=== PATIENT | female | born 1985 | race Caucasian/White ===

== ENCOUNTER → 2021-03-29 00:01 | Outpatient (CLI) | payer SELFPAY ==
[2021-03-29 18:52] LABS: SARS-CoV-2 RNA PCR Negative
== END ==
PROVIDERS: PCP Physician Assistant; Visit Provider Dentist
DX: Z01.812 Encounter for preprocedural laboratory examination (principal); Z20.822 Contact with and (suspected) exposure to COVID-19
CPT/HCPCS: C9803; U0003; U0005

== ENCOUNTER 2021-04-01 00:34 | Day surgery (SDC) | payer SELFPAY ==
[2021-03-26 08:14] VITALS: BMI 23.3
--- NOTE | 2021-03-31 10:54 | WPDANESEPPF ---
Anes - Initial Pre Proc Eval Procedure: Operation Date: 04/01/21 07:30 Proposed Procedures p Extraction of Twelve Teeth - Kenan Alvarez DMD Date/Time: 03/31/21 10:54 Surgeon: Kenan Alvarez DMD Pre Op Diagnosis: dental caries Patient Data Age: 35 Gender: F Height: 1.45 m Weight: 49 kg Allergies Allergy/AdvReac Type Severity Reaction Status Date / Time No Known Allergies Allergy Verified 04/01/21 06:46 Home Medications Medication Instructions Recorded Confirmed Type No Home Medications 03/26/21 04/01/21 History Patient hx anesthesia problems: none Family hx anesthesia problems: none Results Review: All pre-operative results and documents have been reviewed as part of the pre-operative evaluation. COUNTS INCLUDE 234 BEDS AT THE [facility] Surgical History Surgical History (Updated 03/31/21 @ 10:54 by Murtaza Beatty DO) History of Social History Social History Smoking packs per day: 1 Smoking cigarettes per day: 20.0 Years smoked: 18 Smoking pack-years: 18.00 Smoking status: Current every day smoker Tobacco type: cigarettes Alcohol intake: never Substance use: current Substance use type: marijuana Other substance usage details: SMOKE Last use: 03/08/21 Living arrangements: with family Spiritual care concerns: No Anes - Eval Final PreProcedure Day of Procedure 03/31/21 10:54 Patient weight: normal Heart: regular rate and rhythm Lungs: clear to auscultation and normal air movement Airway: Mallampati scale class II Neurological: alert and oriented Last oral intake: >/= 8 hours ASA classification: II Emergent: no Anesthetic plan: proceed Anesthesia type and monitoring: general ETT and standard monitoring Other findings: nasal Results Review: All pre-operative results and documents have been reviewed as part of the pre-operative evaluation. Informed Consent: The patient's anesthetic plan and its attendant risks and benefits were discussed with the patient/family/POA. Questions were solicited and answers provided to the satisfaction of the patient/family/POA.
[2021-04-01] VITALS (7 sets, daily range): BP systolic 134–169; BP diastolic 78–104; PULSE 76–92; RESP 13–16; TEMP 36.4–36.9; O2SAT 94–100
[2021-04-01] MEDS: LACTATED RINGERS 1,000 ML 30 ML IV CONT (07:08)
--- NOTE | 2021-04-01 07:11 | WPDHPUPDATE1 ---
History and Physical Update Update Date/Time: 04/01/21 07:11 History and Physical has been reviewed, including an updated exam of the patient. There are NO changes in the patient's condition. Risks, benefits, and alternatives have been discussed and questions answered. Patient agrees to proceed with procedure.
--- NOTE | 2021-04-01 07:11 | PM.IMHP ---
H&P: HPI History of Present Illness Date/Time: 04/01/21 07:11 complains of bad teeth Chief Complaint: bad teeth PMFSH Surgical History Surgical History (Updated 03/31/21 @ 10:54 by Murtaza Beatty DO) History of Social History Social History Smoking packs per day: 1 Smoking cigarettes per day: 20.0 Years smoked: 18 Smoking pack-years: 18.00 Smoking status: Current every day smoker Tobacco type: cigarettes Alcohol intake: never Substance use: current Substance use type: marijuana Other substance usage details: SMOKE Last use: 03/08/21 Living arrangements: with family Spiritual care concerns: No Meds Home Medications and Allergies Home Medications Medication Instructions Recorded Confirmed Type No Home Medications 03/26/21 04/01/21 History Allergies Allergy/AdvReac Type Severity Reaction Status Date / Time No Known Allergies Allergy Verified 04/01/21 06:46 Assessment and Plan Assessment and plan (1) Non-restorable tooth: Code(s): K08.89 - Other specified disorders of teeth and supporting structures Status: Acute Assessment and Plan: multiple nonrestorable teeth. SR # 1, 5, 8,9,10,11,15,16,17,18,30,32 8s and 9s
[2021-04-01] MEDS: OXYMETAZOLINE HCL 0.05% NAS 15 ML BTL (*BKC) 1 SPRAY NASAL (07:42)
[2021-04-01] MEDS: LIDOCAINE 2%-EPI (FOR DENTAL BLOCK) 1.7 ML CARTRIDGE INFILTRATE (07:44)
[2021-04-01] MEDS: GELATIN SPONGE SZ 100 1 EACH TOPICAL (07:47)
--- NOTE | 2021-04-01 08:16 | P.OPB_ITS ---
Procedure Note - Brief Procedure Note - Brief Date of procedure: 04/01/21 Pre-op diagnosis: dental caries Surgeon: Kenan Alvarez DMD Preoperative diagnosis nonrestorable and impacted teeth numbers 1 5 8 9 10 11 15 16 17 18 30 3 8s and 9s. Postop diagnosis same. Procedure removal of af orementioned teeth. Anesthetic general anesthetic and 5cc of 2% lidocaine with 1 100,000 epinephrine. Blood loss 10cc. Complications none. Patient was encountered in the operating room in the care of the Anesthesia Service who induced general anesthetic. Oral cavity suctioned free of debris and throat pack was placed. Local anesthetic administered. Fifteen blade was used to make a thermal incision a tooth 1. Tooth 1. Was uncovered bone removed and 2 1. Was removed using elevator and forceps technique without complication. Psychic curetted free of debris and irrigated copious amount sterile saline. Do a circular incision was made in the anterior maxilla with the distal releasing incision the area of 12. Full-thickness flaps elevated the buckle. Teeth #[id number] were removed using alligator forceps technique without complication. Hand piece was used to remove bone around tooth numbers 9s and 8 S and these teeth were removed using elevator forceps technique without complication. All sockets curetted free of debris and irrigated copious amounts of sterile saline. Gelfoam was packed into the wound of 8. and 9s. The tissues were reapproximated using 4-0 chromic gut suture in interrupted fashion. Attention was turned to the ER 15. And 16 were 3rd molar incision was made with extension to the area of 15. Full-thickness flap was elevated the buckle. Bone on the buckle was removed in the teeth removed using elevator and forceps technique without complication. Subcuticular retrieved reinterrogate the wildlife and game protector [place] saline. Gingival tissues reapproximated using 4-0 chromic gut suture in interrupted fashion. Attention was turned to the area number 17 in 18 or 3rd molar incision was made in a full-thickness flap was elevated to the buccal. Bone was removed on the buccal surface of these teeth and the teeth removed using a ring forceps technique without complication socket curetted free of debris and irrigated copious amount sterile saline. Gingival tissues r eapproximated using 4-0 chromic gut suture in interrupted fashion. Attention was turned to the lower right were 3rd molar incision was made with extension to the area of number 30 full-thickness flaps over the buckle. Buccal trough was created on teeth numbers 30 and 32 and these teeth removed using alligator forceps technique without complication. Second curetted free of debris and irrigated copious amount sterile saline. The wound number 32 was packed with bone wax and Gelfoam to provide hemostasis. Gingiva gingival tissues reapproximated using 4-0 chromic gut suture in interrupted fashion. Oral cavity suctioned free of debris and throat pack was removed. Gauze packings place. Care the patient was turned the Anesthesia Service who extubated the patient and transferred to recovery in stable condition.
[2021-04-01] MEDS: oxyCODONE HCL (*CRX) 5 MG TAB IR PO (09:04)
[2021-04-01] MEDS: fentaNYL CITRATE INJ (*CRX) 100 MCG/2 ML VIAL 25 MCG IV PUSH (09:19)
--- NOTE | 2021-04-01 09:45 | SUR.PHASEII ---
Dr. Beatty aware of BP and said it's ok to send patient home.
--- NOTE | 2021-04-01 11:04 | SUR.PHASEII ---
0922: RN gave 25mcg of Fentanyl and forgot to chart it.
== END 2021-04-01 10:04 | disposition home or self-care (01) ==
PROVIDERS: PCP Physician Assistant; Visit Provider Dentist
PROC: (CPT 41899; principal; 2021-04-01 07:30)
DX: K02.9 Dental caries, unspecified (principal); K01.1 Impacted teeth; K08.89 Other specified disorders of teeth and supporting structures; F17.210 Nicotine dependence, cigarettes, uncomplicated; F12.90 Cannabis use, unspecified, uncomplicated
CPT/HCPCS: D7240 ×14; A9270; J0330; J1100; J2250; J2405; J2704; J3010; J7120

== ENCOUNTER 2024-09-16 14:40 | Outpatient (CLI) | payer OTHER, SELFPAY ==
--- NOTE | 2024-09-16 | ECG_ITS ---
Test Date: 2024-09-16 16:19:02 Measurements Intervals [place] Rate: 80 P: 32 MS: 151 QRS: 56 QRSD: 93 T: 42 QT: 370 QTc: 429 Interpretive Statements SINUS RHYTHM POSSIBLE LEFT ATRIAL ENLARGEMENT MINIMAL Q WAVES- INFERIOR LEADS BORDERLINE ECG No previous ECG available for comparison Electronically Signed On 09-16-2024 16:27:41 CDT by Gonzalez Truong D.O.
--- NOTE | ~2024-09-16 | US_ITS ---
EXAMINATION: US venous doppler [facility] DATE: 09/16/2024 15:58 INDICATION: Edema TECHNIQUE: Grayscale ultrasound images without and with compression and Doppler ultrasound images of the bilateral lower extremity veins were obtained. COMPARISON: None. FINDINGS: The visualized portions of right common femoral vein, profunda (deep) femoral vein, femoral vein, pop liteal vein, peroneal veins, posterior tibial veins, and greater saphenous vein outflow are patent. The visualized portions of left common femoral vein, profunda femoral vein, femoral vein, popliteal v ein, peroneal veins, posterior tibial veins, and greater saphenous vein outflow are patent. IMPRESSION: 1. No deep venous thrombosis. Reviewed, dictated and finalized at location A.
--- OUTSIDE RECORDS SUMMARY | 2024-09-16 16:52 | XMS_ITS | Clinical Summary ---
Author Organization [facility] Address [address] [place] [address] Care Team Providers Care Managed Care Director Name Role Phone Renny Del Castillo MD Primary Care Provider + Source Comments [facility],non-owned Affiliates and Associated Physician Practices is amultiple site organization consisting of ambulatory clinics and hospital sitesin [place], [place], [place] and [place]. This disclosure is being madepursuant to the Care Everywhere program and may not contain all information available regarding this patient. Last updated 18.[facility] Allergies No known active allergies Medications * Be aware that medications may not be up to date on this document. Alwaysverify current medications with the patient. Medication Sig Dispensed Refills Start Date End Date Status Vit-Fe Fumarate-FA ( VITAMIN) 28-0.8 MG tablet Take 1 Tab by mouth. Active acetaminophen (TYLENOL) 500 MG tablet Take 2 Tabs by mouth every 6 hours as needed for Pain. Maximum allowable Acetaminophen amount = 4 Grams / 24 hours. 04/26/2010 Active valacyclovir (VALTREX) 1 GM tablet Take 1,000 mg by mouth daily. 04/13/2010 Active oxycodone-acetamin ophen (PERCOCET) 5-325 MG tablet Take 1-2 Tabs by mouth every 4 hours as needed for Pain. 20 Tab 0 11/06/2010 Active labetalol (NORMODYNE; TRANDATE) 300 MG tablet Take 3 Tabs by mouth 2 times daily. 180 1 11/06/2010 Active diltiazem coated beads 24hr (CARDIZEM CD) 360 MG capsule Take 1 Cap by mouth every 24 hours. 90 1 11/06/2010 Active hydrochlorothiazid e 12.5 MG TABS Take 12.5 mg by mouth daily. 15 1 11/06/2010 Active ferrous sulfate 325 (65 FE) MG tablet Take 1 Tab by mouth daily. 60 Tab 1 11/06/2010 Active docusate sodium (COLACE) 100 MG capsule Take 1-2 Caps by mouth nightly as needed for Constipation. 60 1 11/06/2010 Active ibuprofen (MOTRIN) 600 MG tablet Take 1 Tab by mouth every 6 hours as needed for Pain. 60 Tab 0 11/06/2010 Active norethindrone (NOR-QD) 0.35 MG tablet Take 1 Tab by mouth daily. 3 Packet 0 11/06/2010 Active norethindrone (NOR-QD) 0.35 MG tablet Take 1 Tab by mouth once daily. Take at the same time everyday. 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 Pt denies h/o outbreaks, but states her boyfriend has genital herpes. Supervision of other high-risk 010 Overview (04/19/2015): Consult from [facility]; [place]; Dr. Simon O+/I/-/- HIV neg VZV IgG positive HSV 2 IgG positive H/H: 13.4/41.5 Hgb A1C (04/08/2010): 5.1 Last pap 04/08/10: negative GCT 100 GBS positive ECHO done 07/15/10 at showed Normal anatomy within limits of ultrasound 08/23: Mild right sided renal pelvis dilation measuring 6.1mm)- resolved 09/06 HTN (hypertension) 04/19/2010 Overview (06/03/2010): Congenital per consult records. Plan is to stop methyl DOPA and to begin Diltiazem (slow release). Baseline 24hr urine <33mg, but likely inadequate (vol 650 ml), repeat 58mg Tobacco abuse 04/19/2010 Overview (04/19/2010): Interested in cessation Maternal Congenital renal dysgenesis Overview (04/26/2010): Followed at [facility] until age 19. No follow-up for 5 years (now23) due to lack of insurance. She was seen by specialists regarding her kidney, hypertension, short stature 4 feet 8 inches, and heart. Will request records. Heart murmur Overview (04/26/2010): echo done at age 19, mitral regurgitation per pt. Will repeat maternal echocardiogram to confirm diagnosis and request [facility] records. Scoliosis Immunizations Name Administration Dates Next Due INFLUENZA VACCINE 05/10/2010 TDAP (7yrs+) 11/06/2010 Family History Medical History Relation Name Comments Heart Failure Maternal Grandfather Hypertension Maternal Grandfather Cancer Maternal Grandmother breast cancer Hypertension Maternal Grandmother Hypertension Mother Cancer Other brain cancer CAD (Coronary Artery Disease) Paternal Grandfather Heart Failure Paternal Grandfather Stroke Paternal Grandmother Arthritis Neg Hx Bleeding Disorders Neg Hx Clotting Disorder Neg Hx Diabetes Neg Hx Genetic/Metabolic Disease Neg Hx Heart Disease Neg Hx Kidney Disease Neg Hx Multiple Births Neg Hx Labor Neg Hx Sickle Cell Anemia Neg Hx Toxemia Neg Hx Tuberculosis Neg Hx Twins Neg Hx Relation Name Status Comments Maternal Grandfather Maternal Grandmother Mother Other Paternal Grandfather Paternal Grandmother Social History Tobacco Use Types Packs/Day Years Used Date Smoking Tobacco: Every Day Cigarettes 0.8 11 Smokeless Tobacco: Never Tobacco Cessation:Ready to Q uit: No Alcohol Use Standard Drinks/Week Comments No 0 (1 standard drink = 0.6 oz pur e alcohol) Sex and Gender Information Value Date Recorded Sex Assigned at Not on file Gender Identity Not on file Sexual Orientation Not on file Last Filed Vital Signs Vital Sign Reading Time Taken Comments Blood Pressure 160/90 12/29/2010 1:00 PM CDT Pulse 98 12/29/2010 1:00 PM CDT Temperature 36.9 C (98.4 F) 11/06/2010 8:10 AM CDT Respiratory Rate 18 12/29/2010 1:00 PM CDT Oxygen Saturation 99% 11/06/2010 8:10 AM CDT Inhaled Oxygen Concentration - - Weight 61.2 kg (135 lb) 12/29/2010 1:00 PM CDT Height 144.8 cm (4' 9 ) 10/31/2010 5:08 PM CDT Body Mass Index 29.21 10/31/2010 5:08 PM CDT Plan of Treatment Health Maintenance Due Date Last Done Comments HEPATITIS C SCREENING 08/09/2004 HEPATITIS B VACCINE (1 of 3 - 19+ 3-dose series) 2005 PNEUMOCOCCAL VACCINE (1 of 2 - PCV) 2005 DTAP/TDAP/TD VACCINES (2 - T d or Tdap) 11/06/2020 11/06/2010 COVID-19 VACCINE (1 - 2023-2 5 season) 2024 DEPRESSION SCREENING 06/12/2024 INFLUENZA VACCINE (Season Ended) 2025 05/10/20 ZOSTER VACCINE (1 of 2) 2036 HIV SCREENING Completed 06/03/2010 HIB VACCINE Aged Out No longer eligi ble based on patient's age to complete this topic HPV VACCINE Aged Out No longer eligi ble based on patient's age to complete this topic MENINGOCOCCAL (Group B) VACC INE SHARED DECISION-MAKING Aged Out No longer eligibl e based on patient's age to complete this topic MENINGOCOCCAL GROUPS A/C/Y/W VACCINE Aged Out No longer eligible b ased on patient's age to complete this topic Procedures Procedure Name Priority Date/Time Associated Diagnosis Comments HIV-1 HIV-2 ANTIBODY Today 06/03/2010 11:30 AM GARMENT PRESSER from Last 3 Months or Most Recently Relevant to Health Maintenance Results * HIV-1 HIV-2 ANTIBODY (06/03/2010 11:30 AM GARMENT PRESSER) HIV-1/HIV-2 Nonreactive Nonreactive [facility] BLOOD SPECIMEN / Unknown 06/03/2010 11:30 AM GARMENT PRESSER 06/03/2010 12:51 PM GARMENT PRESSER Beth Grace MD LAB - CHEMISTRY MAMI LEY [facility] Organization Address City/State/ZIP Co de Phone Number [facility] [address] [place] [address] from Last 3 Months or Most Recently Relevant to Health Maintenance Advance Directives * Full Code (Latest Code Status on File) Date Activated Date Inactivated Comments 10/31/2010 6:23 PM 11/07/2010 12:38 AM * Full Code Date Activated Date Inactivated Comments 09/06/2010 3:30 PM 09/11/2010 12:49 AM Care Teams Managed Care Director Relationship Specialty Start Date End Date Renny Del Castillo MD [id number] [place], [place] [address] PCP - General 07/16/10
--- OUTSIDE RECORDS SUMMARY | 2024-09-16 16:52 | XMS_ITS | Data Portability ---
Author Organization SAVANAH ARLENECarter Canas Address [address] [place] [address] Care Team Providers Care Joiner Helper Name Role Phone COLTON AVILEZ [employer] Helper [phone] Assessment Encounter Date Assessment Date Assessment LastModified by Organization Details LastModified Time 08/23/2024 08/23/2024 Nephrotic syndrome? Polycystic kidney disease? oajao Not available 08/23/2024 16:43:17 Plan of Treatment Reminders Order Date Submit Date Provider Last Modified By Organization Details Last Modified Time Details Appointments ANY 30 2024 01:30P M Brian Slater MD Not available Not available Not available Lab drug screen, urine 2024 025 [email or web address] [facility], [address], [place], [address], 09/13/2024 14:29:46 HIV 1 + 2, meaningfu l use set 2024 025 [email or web address] [facility], [address], [place], [address], 09/13/2024 14:29:46 CMP, serum or plasma 2024 025 [email or web address] [facility], [address], [place], [address], 09/13/2024 14:29:45 urinalysi s macro (dipstick ) panel, urine 2024 025 [email or web address] [facility], [address], [place], [address], 09/13/2024 14:29:45 lipid panel, serum 2024 025 [email or web address] [facility], [address], [place], [address], 09/13/2024 14:29:45 CBC 2024 025 [email or web address] [facility], [address], [place], [address], 09/13/2024 14:29:46 vitamin B12, serum 2024 025 [email or web address] [facility], [address], [place], [address], 09/13/2024 14:29:46 TSH, ultra-sen sitive, serum 2024 025 [email or web address] [facility], [address], [place], [address], 09/13/2024 14:29:46 CMP, serum or plasma 2016 017 [facility], [address], [place], [address], 01/23/2017 13:07:44 TSH + free T4, serum 2016 017 [facility], [address], [place], [address], 01/23/2017 13:07:43 CBC 2016 017 [facility], [address], [place], [address], 01/23/2017 13:07:43 lipid panel, serum 2016 017 [facility], [address] [address], [place], [address], 01/23/2017 13:07:43 pap, IG + HPV, cervical 2016 017 N[facility], [address], [address], [place], [address], 06/28/2016 06:05:15 bacterial vaginosis + vaginitis panel, vaginal 2016 017 N[facility], [address], [address], [place], [address], 06/29/2016 06:05:27 HSV (1+2) DNA, qual, PCR, unspecifi ed specimen 2016 017 [facility], [address], [address], [place], [address], 06/29/2016 06:05:28 test, urine 2016 017 lary In-Office Order, Internal Use Only DO Not Attach Compendium DO Not Attach Compendium, Do Not Delete/merge, [id number] 06/23/2016 11:32:23 urinalysi s, dipstick 2016 017 lary In-Office Order, Internal Use Only DO Not Attach Compendium DO Not Attach Compendium, Do Not Delete/merge, [id number] 06/23/2016 11:32:23 RPR (rapid plasma reagin), serum 2016 017 [facility], [address], [address], [place], [address], 06/24/2016 08:27:42 hsv-2 (herpes simplex virus type 2) igg Ab, serum 2016 017 [facility], [address], [address], [place], [address], 06/24/2016 08:27:43 hepatitis panel (A+B+C), acute, serum 2016 017 [facility], [address], [place], [address], 06/24/2016 08:27:41 hepatitis B surface Ab, qualitati ve, serum 2016 017 [facility], [address], [address], [place], [address], 06/24/2016 08:27:41 HIV 1+2 AB + HIV 1 p24 Ag, qualitati ve immunoass ay, serum 2016 017 [facility], [address], [place], [address], 06/24/2016 08:27:42 Referral None recorded. Procedures None recorded. Surgeries None recorded. Imaging US, renal - Edema, history of HTN and congenita l kidney disease 2024 025 [facility] (Imaging), [address] [place] [address] [address] [facility], [place], [address], 09/05/2024 16:43:25 electroca rdiogram - Tachycard ia 2024 025 [facility] (Cardiology & Emg), [address] [place] [address] [address], [place], [address], 09/05/2024 16:39:53 US, duplex, venous, lower extremity , complete - Edema L>R 2024 025 [facility] (Imaging), [address] [place] [address] [address], [place], [address], 09/05/2024 16:35:08 electroca rdiogram [address] ([facility]), [address] [place], [address], 01/23/2017 18:02:24 US, breast, bilateral , w/ axilla 2016 017 [facility] ([facility]), [address] [place], [address], 07/14/2016 12:49:38 Medication Orders Flagyl 500 mg tablet [address] [facility], [address] [place] [address], [address], 05/24/2017 18:00:36 lisinopri l 40 mg tablet 2015 016 [facility], [address] [place] [address], [address], 08/23/2024 14:04:43 gabapenti n 300 mg capsule [address] [facility] [address] [facility], [address] [place] [address], [address], 05/24/2017 18:00:42 lisinopri l 40 mg tablet 2014 015 [facility], [address] [place] [address], [address], 08/23/2024 14:04:43 Patient TargetsNo targets recorded. Patient Instructions Encounter Date Encounter Id Patient Instructions Last Modified By Organization Details Last Modified Time 06/23/2016 [id number] breast lumps: care instructions lary Not available 06/23/2016 11:10:06 bacterial vaginosis: care instructions [email or web address] Not available 06/23/2016 11:10:06 01/23/2017 [id number] I advised callin g 911 and taking a baby aspirin any time heaviness in chest occurs ..... 81 mg ...... [email or web address] Not available 01/23/2017 13:25:16 08/23/2024 [id number] tetanus and diphtheria booster: care instructions oajao Not available 08/23/2024 14:12:52 Quitting Tobacco : Care Instructions oajao Not available 08/23/2024 14:52:15 leg and ankle edema: care instructions oajao Not available 08/23/2024 14:42:43 snoring: care instructions oajao Not available 08/23/2024 14:39:46 fatigue: care instructions oajao Not available 08/23/2024 14:39:46 D/C summary Labs EKG Stop smoking Stop all OTC diuretics Follow up in 3-4 weeks oajao Not available 08/23/2024 16:44:29 Detailed initial visit oajao Not available 08/23/2024 16:43:40 Reason for Referral None Reported. Results Created Date Observation Date Name Description Value Unit Range Abnormal Flag Note LastModifiedBy Organization Detail LastModifiedTime 06/23/19 17 06/23/2016 urina lysis , dipst ick Leukocytes Negati ve Not Available In-Office Order Internal Use Only DO Not Attach Compendium DO Not Attach Compendium, Do Not Delete/merge, 06/23/2016 10:52:12 06/23/19 17 06/23/2016 urina lysis , dipst ick Nitrite negati ve Not Available In-Office Order Internal Use Only DO Not Attach Compendium DO Not Attach Compendium, Do Not Delete/merge, 06/23/2016 10:52:12 06/23/19 17 06/23/2016 urina lysis , dipst ick Urobilinogen .2 Not Available In-Of fice Order Internal Use Only DO Not Attach Compendium DO Not Attach Compendium, Do Not Delete/merge, 06/23/2016 10:52:12 06/23/19 17 06/23/2016 urina lysis , dipst ick Protein Negati ve Not Available In-Office Order Internal Use Only DO Not Attach Compendium DO Not Attach Compendium, Do Not Delete/merge, 06/23/2016 10:52:12 06/23/19 17 06/23/2016 urina lysis , dipst ick pH 6.0 Not Available In-Office Order Internal Use Only DO Not Attach Compendium DO Not Attach Compendium, Do Not Delete/merge, 06/23/2016 10:52:12 06/23/19 17 06/23/2016 urina lysis , dipst ick Blood Negati ve Not Available In-Office Order Internal Use Only DO Not Attach Compendium DO Not Attach Compendium, Do Not Delete/merge, 06/23/2016 10:52:12 06/23/19 17 06/23/2016 urina lysis , dipst ick Specific Troup 1.030 Not Available In-Off ice Order Internal Use Only DO Not Attach Compendium DO Not Attach Compendium, Do Not Delete/merge, 06/23/2016 10:52:12 06/23/19 17 06/23/2016 urina lysis , dipst ick Ketone Negati ve Not Available In-Office Order Internal Use Only DO Not Attach Compendium DO Not Attach Compendium, Do Not Delete/merge, 06/23/2016 10:52:12 06/23/19 17 06/23/2016 urina lysis , dipst ick Bilirubin Negati ve Not Available In-Office Order Internal Use Only DO Not Attach Compendium DO Not Attach Compendium, Do Not Delete/merge, 06/23/2016 10:52:12 06/23/19 17 06/23/2016 urina lysis , dipst ick Glucose Negati ve Not Available In-Office Order Internal Use Only DO Not Attach Compendium DO Not Attach Compendium, Do Not Delete/merge, 06/23/2016 10:52:12 06/23/19 17 06/23/2016 pregn yemi test, urine HCG negati ve Not Available In-Office Order Internal Use Only DO Not Attach Compendium DO Not Attach Compendium, Do Not Delete/merge, 06/23/2016 10:51:59 06/23/19 17 06/24/2016 hepat itis panel (A+B+ C), acute , serum hep A Ab, IgM NEGATI VE negati ve Not Available [facility] ([facility]) [address] [facility], [place], [address], 06/24/2016 08:27:41 06/23/19 17 06/24/2016 hepat itis panel (A+B+ C), acute , serum HBsAg screen NEGATI VE negati ve Not Available [facility] ([facility]) [address] [place], [address], 06/24/2016 08:27:41 06/23/19 17 06/24/2016 hepat itis panel (A+B+ C), acute , serum hep B core Ab, IgM NEGATI VE negati ve Not Available [facility] ([facility]) [address] [place], [address], 06/24/2016 08:27:41 06/23/19 17 06/24/2016 hepat itis panel (A+B+ C), acute , serum hep C virus Ab <0.1 S/co_ ratio 0.0-0. 9 NEGAT ROBIN: < 0.8 INDET ERMIN ATE: 0.8 - 0.9 POSIT ROBIN: > 0.9 THE CDC RECOM MENDS THAT A POSIT ROBIN HCV ANTIB LISA RESUL T BE FOLLO WED UP WITH A HCV NUCLE IC ACID AMPLI FICAT ION TEST (5507 13). Not Available [facility] ([facility]) [address] [place], [address], 06/24/2016 08:27:41 06/23/19 17 06/24/2016 hepat itis B surfa ce Ab, quali tativ e, serum hep B surface Ab, qual REACTI VE NON REACT ROBIN: INCON SISTE NT WITH IMMUN ITY, LESS THAN 10 MIU/M L REACT ROBIN: CONSI STENT WITH IMMUN ITY, GREAT ER THAN 9.9 MIU/M L Not Available [facility] ([facility]) [address] [place], [address], 06/24/2016 08:27:41 06/23/1906/24/2016 RPR (rapi d plasm a reagi n), serum RPR NON REACTI VE non reacti ve Not Available [facility] ([facility]) [address] [place], [address], 06/24/2016 08:27:42 06/23/1906/24/2016 HIV 1+2 AB + HIV 1 p24 Ag, quali tativ e immun oassa y, serum HIV screen 4TH generation wrfx NON REACTI VE non reacti ve Not Available [facility] ([facility]) [address] [facility], [place], [address], 06/24/2016 08:27:42 06/23/1906/24/2016 hsv-2 (herp es simpl ex virus type 2) igg Ab, serum hsv 2 IgG, type spec 3.57 index 0.00-0 .90 above high normal NEGAT ROBNI <0.91 EQUIV OCAL 0.91 - 1.09 POSIT ROBIN >1.09 NOTE: NEGAT ROBIN INDIC ATES NO ANTIB ODIES DETEC STACY TO HSV-2 . EQUIV OCAL MAY SUGGE ST EARLY INFEC TION. IF CLINI JASON APPRO PRIAT E, RETES T AT LATER DATE. POSIT ROBIN INDIC ATES ANTIB ODIES DETEC STACY TO HSV-2 . Not Available [facility] ([facility]) [address] [facility], [place], [address], 06/24/2016 08:27:42 06/23/1906/27/2016 pap, IG + HPV, cervi shiv diagnosis: COMMEN T NEGAT ROBIN FOR INTRA EPITH ELIAL LESIO N AND MALANDRES ZAPATA . THIS SPECI MEN WAS RESCR EENED PART OF OUR QUALI TY CONTR OL PROGR AM. Not Available [facility] ([facility]) [address] [facility], [place], [address], 06/28/2016 06:05:15 06/23/1906/27/2016 pap, IG + HPV, cervi shiv specimen adequacy: COMMEN T SATIS FACTO RY FOR EVALU ATION . NO ENDOC ERVIC AL COMPO NENT IS IDENT IFIED . Not Available [facility] ([facility]) [address] [facility], [place], [address], 06/28/2016 06:05:15 06/23/19 17 06/27/2016 pap, IG + HPV, cervi shiv clinician provided ICD10: ERIKA Munguia Z01.4 19 Not Available [facility] ([facility]) [address] [place], [address], 06/28/2016 06:05:15 06/23/1906/27/2016 pap, IG + HPV, cervi shiv performed by: ERIKA HOWARD , CYTOT ECHNO LOGIS T (ASCP ) Not Available [facility] ([facility]) [address] [place], [address], 06/28/2016 06:05:15 06/23/1906/27/2016 pap, IG + HPV, cervi shiv QC reviewed by: ERIKA PETIT, NATALIA VISOR Y CYTOT ECHNO LOGIS T (ASCP ) Not Available [facility] ([facility]) [address] [place], [address], 06/28/2016 06:05:15 06/23/1906/27/2016 pap, IG + HPV, cervi shiv . . Not Available [facility] ([facility]) [address] [place], [address], 06/28/2016 06:05:15 06/23/1906/27/2016 pap, IG + HPV, cervi shiv note: ERIKA Munguia THE PAP SMEAR IS A SCREE BRITT TEST DESIG SHAWNA TO AID IN THE DETEC TION OF NASH LIGNA NT AND MALIG NANT CONDI TIONS OF THE UTERI NE CERVI X. IT IS NOT A DIAGN OSTIC PROCE DURE AND SHOUL D NOT BE USED THE SOLE MEANS OF DETEC TING CERVI SHIV CANCE R. BOTH FALSE -POSI TIVE AND FALSE -NEGA TIVE REPOR TS DO OCCUR . Not Available [facility] ([facility]) [address] [place], [address], 06/28/2016 06:05:15 06/23/19 17 06/27/2016 pap, IG + HPV, cervi shiv HPV aptima NEGATI VE negati ve THIS TEST DETEC TS FOURT EEN HIGH- RISK HPV TYPES (16/1 8/31/ 33/35 /39/4 5/ 51/52 /56/5 8/59/ 66/68 ) WITHO UT ISRAELE RICARDO WOO . Not Available [facility] ([facility]) [address] [facility], [place], [address], 06/28/2016 06:05:15 06/23/19 17 06/26/2016 bacte rial vagin osis + vagin itis panel , vagin al trich vag by LESLEE NEGATI VE negati ve Not Available [facility] ([facility]) [address] [place], [address], 06/29/2016 06:05:27 06/23/19 17 06/26/2016 bacte rial vagin osis + vagin itis panel , vagin al chlamydia trachomatis, LESLEE NEGATI VE negati ve Not Available [facility] ([facility]) [address] [place], [address], 06/29/2016 06:05:27 06/23/19 17 06/26/2016 bacte rial vagin osis + vagin itis panel , vagin al neisseria gonorrhoeae, LESLEE NEGATI VE negati ve Not Available [facility] ([facility]) [address] [place], [address], 06/29/2016 06:05:27 06/23/19 17 06/27/2016 bacte rial vagin osis + vagin itis panel , vagin al atopobium vaginae LOW - 0 score Not Available [facility] ([facility]) [address] [place], [address], 06/29/2016 06:05:27 06/23/19 17 06/27/2016 bacte rial vagin osis + vagin itis panel , vagin al bvab 2 LOW - 0 score Not Available [facility] ([facility]) [address] [place], [address], 06/29/2016 06:05:27 06/23/19 17 06/27/2016 bacte rial vagin osis + vagin itis panel , vagin al megasphaera 1 LOW - 0 score CALCU LATE TOTAL SCORE BY SHAZIA Cooper THE 3 INDIV IDUAL BACTE RIAL VAGIN OSIS (BV) MARKE R SCORE S TOGET HER. TOTAL SCORE IS INTER PRETE D FOLLO WS: TOTAL SCORE 0-1: INDIC ATES THE ABSEN CE OF BV. TOTAL SCORE 2: INDET ERMIN ATE FOR BV. ADDIT IONAL CLINI SHIV DATA SHOUL D BE EVALU ATED TO ESTAB DIALIA A DIAGN OSIS. TOTAL SCORE 3-6: INDIC ATES THE PRESE NCE OF BV. THIS TEST WAS DEVEL OPED AND ITS PERFO RMANC E GERRY CTERI STICS DETER MINED BY [employer] [facility]. IT HAS NOT BEEN CLEAR ED OR APPRO RUTH BY THE FOOD AND DRUG ADMIN ISTRA TION. THE FDA HAS DETER MINED THAT SUCH CLEAR ANCE OR APPRO JESSICA IS NOT NECES GERMAN. Not Available [facility] ([facility]) [address] [facility], [place], [address], 06/29/2016 06:05:27 06/23/19 17 06/27/2016 bacte rial vagin osis + vagin itis panel , vagin al jagdish albicans, LESLEE NEGATI VE negati ve Not Available [facility] ([facility]) [address] [place], [address], 06/29/2016 06:05:27 06/23/1906/27/2016 bacte rial vagin osis + vagin itis panel , vagin al jagdish glabrata, LESLEE NEGATI VE negati ve THIS TEST WAS DEVEL OPED AND ITS PERFO RMANC E GERRY CTERI STICS DETER MINED BY [employer] [facility]. IT HAS NOT BEEN CLEAR ED OR APPRO RUTH BY THE FOOD AND DRUG ADMIN ISTRA TION. THE FDA HAS DETER MINED THAT SUCH CLEAR ANCE OR APPRO JESSICA IS NOT NECES GERMAN. Not Available [facility] ([facility]) [address] [facility], [place], [address], 06/29/2016 06:05:27 06/23/19 17 06/27/2016 HSV (1+2) DNA, qual, PCR, unspe cifie d speci men hsv 1 LESLEE NEGATI VE negati ve Not Available [facility] ([facility]) [address] [place], [address], 06/29/2016 06:05:28 06/23/19 17 06/28/2016 HSV (1+2) DNA, qual, PCR, unspe cifie d speci men hsv 2 LESLEE NEGATI VE negati ve Not Available [facility] ([facility]) [address] [place], [address], 06/29/2016 06:05:28 07/14/19 17 07/14/2016 US, quinten munguia No observ ation record ed. [address] ([facility]) [address] [place], [address], 09/22/2016 16:08:21 07/14/19 17 07/14/2016 , quinten munguia, bilat eral, w/ axill a No observ ation record ed. [facility] [address] [place], [address], 07/18/2016 23:44:09 01/17/2001/17/2020 XR, tibia + fibul a No observ ation record ed. [facility] ([facility]) [address] [place], [address], 02/26/2020 10:31:45 01/17/20 20 01/17/2020 CT, head, w/o contr ast No observ ation record ed. [facility] ([facility]) [address] [place], [address], 02/26/2020 10:31:17 01/17/20 20 01/17/2020 XR, tibia + fibul a No observ ation record ed. [facility] ([facility]) [address] [place], [address], 02/26/2020 10:32:00 01/17/20 20 01/17/2020 CT, cervi shiv spine , w/o contr ast No observ ation record ed. [facility] ([facility]) [address] [place], [address], 02/26/2020 15:51:42 01/17/20 20 01/17/2020 XR, lumba r spine No observ ation record ed. [facility] ([facility]) [address] [place], [address], 02/26/2020 15:32:30 12/11/19 22 12/09/2021 XR, shoul deniz, 2 or more view No observ ation record ed. [email or web address] [place] [address] [facility] [address] [place], [address], 12/10/2021 15:53:41 Result Notes None recorded. 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 2017 Nathaniel Haley PA-C Attn: Michael cooper,[address] [facility], [place], [address], [place] - [facility] 8 14:51:27 Short stature disorder 746513070 Active Taty Padilla MA null, [place] - [facility] 5 16:50:53 Irritable bowel syndrome 15757386 Active Nathaniel Haley PA-C Attn: Michael cooper,[address] [place], [address], [place] [facility] 5 14:59:41 Hypertensiv e disorder 32031982 Active Nathaniel Haley PA-C Attn: Michael cooper,[address] [facility], [place], [address], [place] - [facility] 6 16:26:05 Familial hypoplastic , 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 Taty Padilla [place] null, [place] [facility] 5 16:50:53 Acquired scoliosis 096935282 Active Nathaniel Haley PA-C Attn: Michael copoer,[address] [facility], [place], [address], [place] [facility] 6 16:16:06 Disorder of teeth AND/OR supporting structures 240888316 Active Brian Slater MD Attn: Michael cooper,[address] [facility], [place], [address], [place] [facility] 5 14:15:00 Contusion of left shoulder 8796809115203 9105 Active Brian Slater MD Attn: Michael cooper,[address] [facility], [place], [address], [place] [facility] 5 14:18:49 History of hypertensio n 941268171 Active 2024 Brian Slater MD Attn: Michael cooper,[address] [facility], [place], [address], [place] [facility] 5 14:52:04 Essential hypertensio n 03757689 Active Nathaniel Haley PA-C Attn: Michael cooper,[address] [facility], [place], [address], [place] [facility] 6 16:16:06 Tight chest 77972886 Active 2016 Nathaniel Haley PA-C Attn: Michael cooper,[address] [facility], [place], [address], [place] - [facility] 7 13:04:38 Problem Notes None recorded. Procedures Surgical History Date Name Laterality Status Provider Name and Address Organization Details Recorded Time 4 I&d abscess simple/single completed Brian Slater MD Attn: Accounting,[address] [facility], [place], [address], [place] - [place] 08/23/2024 14:28:31 7 Date of Last Pap Smear completed Saba Lozano MA [facility] 06/23/2016 10:32:44 1 Caesarean Section completed Saba Lozano MA [facility] 06/23/2016 10:32:37 Imaging Results Imaging Date Name Status LastModified by Organiz ation Details LastModified Time 07/14/2016 US, breast completed [email or web address] [facility] ([facility]) [address] [place], [address], 09/22/2016 16:08:21 07/14/2016 US, breast, bilateral, w/ axilla completed [facility] [address] [place], [address], 07/18/2016 23:44:09 01/17/2020 XR, tibia + fibula completed [facility] ([facility]) [address] [place], [address], 02/26/2020 10:31:45 01/17/2020 CT, head, w/o contrast completed [facility] ([facility]) [address] [place], [address], 02/26/2020 10:31:17 01/17/2020 XR, tibia + fibula completed [facility] ([facility]) [address] [place], [address], 02/26/2020 10:32:00 01/17/2020 CT, cervical spine, w/o contrast completed [facility] ([facility]) [address] [place], [address], 02/26/2020 15:51:42 01/17/2020 XR, lumbar spine completed [facility] ([facility]) [address] [place], [address], 02/26/2020 15:32:30 12/09/2021 XR, shoulder, 2 or more view completed [email or web address] [facility] Add On Lab Orders [address] [place], [address], 12/10/2021 15:53:41 Procedure Notes None recorded. Medical Equipment None Reported. Allergies Allergen ID Allergen Name Allergen Category Reaction Reaction Severity Criticality Documentation Date Start Date Code Code System Note Provider Name and Address Organization Details Recorded Time [id number] No known allergy (situatio n) Not available Not available Not available Not available 08/23/2024 28522 6003 SNOMED Not Available Not Available Not Available No known drug allergies Medications Name Sig Start Date Stop Date Status Note LastModified by Organization Details LastModified Time clindamycin HCl 300 mg capsule 05/24 completed Not Available Not Available Not Available ibuprofen 800 mg tablet 05/24 completed Not Available Not Available Not Available valacyclovi r 1 gram tablet 05/24 completed Not Available Not Available Not Available hydrocodone 5 mg-acetamin ophen 325 mg tablet TAKE 1 TABLET BY MOUTH EVERY 6 HOURS NEEDED FOR PAIN 08/23 completed Not Available Not Available Not Available prednisone 20 mg tablet Take 2 tablets twice a day by oral route for 2 days. 08/23 completed Not Available Not Available Not Available metronidazo le 500 mg tablet Take 1 tablet every 12 hours by oral route for 7 days. 05/24 completed Not Available Not Available Not Available sulfamethox azole 800 mg-trimetho prim 160 mg tablet TAKE 1 TABLET BY MOUTH TWICE DAILY 08/23 completed Not Available Not Available Not Available acyclovir 800 mg tablet Take 1 tablet 5 times a day by oral route for 10 days. 08/23 completed Not Available Not Available Not Available terbinafine HCl 250 mg tablet 05/24 completed Not Available Not Available Not Available nortriptyli ne 10 mg capsule Take 2 capsules every day by oral route at bedtime for 30 days. 08/23 completed Not Available Not Available Not Available prednisone 50 mg tablet 05/24 completed Not Available Not Available Not Available gabapentin 300 mg capsule Take 2 capsules 3 times a day by oral route for 30 days. 05/24 completed Not Available Not Available Not Available oxycodone-a cetaminophe n 7.5 mg-325 mg tablet 05/24 completed Not Available Not Available Not Available lisinopril 40 mg tablet 1 tab po qd for hypertens ion 08/23 completed Not Available Not Available Not Available lidocaine 5 % topical ointment 05/24 completed Not Available Not Available Not Available Vitals Date Recorded Body weight Oxygen saturation Oxygen saturation in Arterial blood by Pulse oximetry Body height Body mass index (BMI) Body temperature Heart rate Systolic blood pressure Diastolic blood pressure Provider Name and Address Organization Details Last Updated DateTime 5 41721.1 84750 g 99 % 99 % 143.51 cm 30.7 kg/m2 98.1 [degF] 96 /min 134 mm[Hg] 80 mm[Hg] Lori Alicea [place] [facility] 5 14:56:07 Date Recorded Body height Body mass index (BMI) Body weight Oxygen saturation Oxygen saturation in Arterial blood by Pulse oximetry Heart rate Respiratory rate Body temperature Systolic blood pressure Diastolic blood pressure Provider Name and Address Organization Details Last Updated DateTime 5 143.51 cm 23.9 kg/m2 68281.4 9 g 98 % 98 % 104 /min 16 /min 98.3 [degF] 124 mm[Hg] 76 mm[Hg] Edith Avila MA [place] [facility] 5 14:08:38 Date Recorded Body temperature Body mass index (BMI) Body weight Oxygen saturation Oxygen saturation in Arterial blood by Pulse oximetry Body height Heart rate Systolic blood pressure Diastolic blood pressure Provider Name and Address Organization Details Last Updated DateTime 6 97.7 [degF] 28.2 kg/m2 53654.8 2336 g 99 % 99 % 143.51 cm 84 /min 116 mm[Hg] 64 mm[Hg] Chely Sam MA [place] [facility] 6 15:42:15 Date Recorded Body height Body weight Body mass index (BMI) Systolic blood pressure Diastolic blood pressure Provider Name and Address Organization Details Last Updated DateTime 06/23/2016 143.51 cm 57508.82 g 28.2 kg/m2 84 mm[Hg] 60 mm[Hg] Saba Lozano MA [facility] 7 10:45:19 Date Recorded Body height Body mass index (BMI) Body weight Oxygen saturation Oxygen saturation in Arterial blood by Pulse oximetry Heart rate Body temperature Systolic blood pressure Diastolic blood pressure Provider Name and Address Organization Details Last Updated DateTime 7 143.51 cm 29.7 kg/m2 82046.5 7 g 99 % 99 % 86 /min 97.4 [degF] 126 mm[Hg] 80 mm[Hg] Lori YAYA Alicea [facility] SI 7 12:50:54 Social History Question Answer Notes LastModified by Organizat ion Details LastModified Time Tobacco Smoking Status Current Every Day Smoker Saba Lozano MA [facility], [facility] 06/23/2016 10:28:30 Do You Have An Advance Directive? No Information not available 06/23/2016 What Is Your Level Of Alcohol Consumption? None Information not available 06/23/2016 Is Blood Transfusion Acceptable In An Emergency? Yes Information not available 06/23/2016 What Is Your Level Of Caffeine Consumption? Heavy Soda Information not available 08/23/2024 How Much Tobacco Do You Chew? None Information not available 06/23/2016 Are You Currently Employed? Yes Information not available 06/23/2016 What Type Of Diet Are You Following? REGULAR Information not available 06/23/2016 Which Illicit Or Recreational Drugs Have You Used? None Information not available 06/23/2016 Education 12 Information no t available 06/23/2016 What Is Your Occupation? [employer] Information not available 06/23/2016 Live Alone Or With Others? With Others Information not available 06/23/2016 What Was The Date Of Your Most Recent Tobacco Screening? 08/23/2024 Information not available 08/23/2024 How Many Children Do You Have? 1 Information not available 06/23/2016 What Is Your Current Pack Years? 10-19packyea rs Information not available 08/23/2024 Performs Monthly Self-breast Exam? Yes Information not available 06/23/2016 Do You Use Protection During Sex? Always Information not available 06/23/2016 What Is Your Relationship Status? Single Information not available 06/23/2016 Seat Belts Used Routinely Yes Information not available 06/23/2016 Are You Sexually Active? Yes Information not available 06/23/2016 At What Age Did You Start Smoking Tobacco? 17 Information not available 06/23/2016 How Much Tobacco Do You Smoke? 0.5 PPD Decreased To 1/2 PPD ~ 01/2024 Information not available 08/23/2024 General Stress Level Low Information not available 06/23/2016 Do You Use Any Illicit Or Recreational Drugs? No Information not available 08/23/2024 Do You Use Sunscreen Routinely? No Information not available 06/23/2016 Has Tobacco Cessation Counseling Been Provided? Yes Information not available 08/23/2024 On What Date Was Tobacco Cessation Counseling Provided? 08/23/2024 Information not available 08/23/2024 How Many Years Have You Smoked Tobacco? 22 Information not available 08/23/2024 Do You Or Have You Ever Used Any Other Forms Of Tobacco Or Nicotine? No Information not available 08/23/2024 Sex: Unknown Functional Status Question Answer Note LastModified by Organizat ion Details LastModified Time What is your exercise level? Occasional Information not available 06/23/2016 Mental Status None recorded. Family History Relationship Description Onset Age of this Age Resolved Age Notes LastModified by Organization Details LastModified Time Maternal Aunt Carcinoma of breast 60 bilate ral mactec erika, deceas ed from anothe r type unknow n cancer , late 60,s Not available 06/23/2016 10:27:58 Maternal Grandmother Carcinoma of breast great Grandm other had breast cancer , deceas ed in 50,s years of age, cbma Not available 06/23/2016 10:28:13 Medical History Condition Response High Blood Pressure Y Gynecological History Statement/Question Response Abnormal Pap N Flow Moderate Date of LMP 08/07/2024 STIs/STDs N HPV Vaccine Y Duration of Flow (days) 7 Age at Menarche 13 Current Control Method None Age at First Child 25 Frequency of Cycle (Q days) 28 Sexually Active? Y Menses Monthly Y Date of Last Pap Smear 06/23/2016 Sexual Problems? N LMP Approximate Desired Control Method None Obstetrics History GPAL:G 1 P 1 0 0 1 Type Value Multiple Births 0 Full Term 1 Induced 0 Spontaneous 0 Premature 0 Living 1 Ectopics 0 Total 1 Immunizations Vaccine Type Date Status Note Provider Nam e and Address Organization Details Recorded Time Hep A-Hep B 07/25/2014 completed Not Available [facility] 06/29/2019 02:36:26 Hep A-Hep B 09/04/2014 completed Not Available [facility] 06/29/2019 02:36:26 Hep A-Hep B 02/05/2015 completed Not Available [facility] 06/29/2019 02:36:26 Tdap 08/23/2024 completed Brian Slater MD Attn: [address] [place], [address], [facility] 08/23/2024 16:38:53 Past Encounters Encounter ID Performer Location Encounter Start Date Encounter Closed Date Diagnosis/Indication Diagnosis SNOMED-CT Code Diagnosis ICD10 Code Diagnosis Note [id number] Tiarra Kiser (Adult Med) [address] [place] [address] 52228-521 0 07/25/2014 11:17:33 07/28/2014 09:59:02 Active or passive immunization 224375115 [id number] [facility] (Adult Med) [address] [place] [address] 56650-179 0 09/04/2014 16:26:22 09/04/2014 17:45:32 Active or passive immunization 827845540 [id number] [facility] (Adult Med) [address] [place] [address] 56665-664 0 02/05/2015 15:47:31 02/05/2015 16:51:56 Active or passive immunization 566605861 v058 [id number] BRADY Nicholson (Adult Med) [address] [place] [address] 52403-392 0 04/14/2015 14:47:45 04/15/2015 13:05:08 Hypertensive disorder 87216215 I10 Irritable bowel syndrome 41490237 K58.9 [id number] BRADY Nicholson (Adult Med) [address] [place] [address] 21241-289 0 03/07/2016 15:14:37 03/07/2016 17:27:24 Essential hypertension 17577516 I10 Acquired scoliosis 79030 6001 M41.9 [id number] YAYA Herman (HOLIDAY DETECTOR OPERATOR) [address] [place] [address] 86963-811 0 06/23/2016 09:53:21 06/23/2016 14:47:57 Gynecologic examination 06068816 Z01.419 Venereal d isease screening 428112406 Z11.3 Breast lump 68493464 N63 Bacterial vaginosis 4197 19198 N76.0 [id number] BRADY Nicholson (Adult Med) [address] [place] [address] 23358-005 0 01/23/2017 12:41:38 01/23/2017 18:02:24 Tight chest 88622072 R07.89 Essential hypertension 98215230 I10 Familial h ypoplastic, glomerulocystic kidney 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 0 History of hypertension 319248140 Z86.79 Family his tory of kidney disease 638245237 Z84.1 Intentiona l weight loss 356461130 R63.8 -26 lbs Nicotine dependence 5629 4008 F17.200 Health Concerns Section Related Observation LastModified by Organization Detai ls LastModified Time None Recorded Concern Status LastModified by Organization Details LastModified Time None Recorded Advance Directives Directive N: Payers Encounter Date Sequence Insurance Name Policy Number Policy Diaz Covered Member ID Diaz Member ID Guarantor Name 04/14/2015 1 [facility] (MEDICAID HMO) [id number] 03/07/2016 1 [facility] (MEDICAID HMO) [id number] [address] 06/23/2016 1 [facility] (MEDICAID HMO) [id number] [id number] [address] 01/23/2017 1 [facility] (MEDICAID HMO) [id number] 08/23/2024 1 [email or web address] PLUS [id number] [id number] Notes Date Note Type Note Provider Name and Address Organization Details Recorded Time 06/23/2016 text/html came tatyana c/o dim pling above left nipple since 1 and half week. Denies any breast mass or nipple discharge, breast tenderness Saba Lozano MA null, [facility] 07/12/2016 16:08:47 01/23/2017 text/html heaviness mid st ernum while at rest , intermittent , for 1 week , no sob , no exertional chest pain Nathaniel Haley PA-C Attn: Accounting[address] [place], [address], [facility] 01/23/2017 13:44:43 08/23/2024 text/html EdemaReported bypatient.Quality:leg s do not swell equally(L>R) Severity:severe Duration:constant Onset/Timing:started 6 weeks ago Context:no prior history of edema; no prior history of deep vein thrombosis; no new medications; normal salt intake; no recent travel Modifying Factors:nothing gives relief Associated Symptoms:no shortness of breath; no shortness of breath during exertion; no nocturia; no significant weight gain; no cough; no orthopnea; no paroxysmal nocturnal dyspnea (PND); no chest pain;swelling in lower legs only;palpitationsFati gueReported bypatient.Severity:no rmal sleep patterns; normal exercise habits; normal activity; improving; severe Duration:symptoms lasting over 2 weeks Timing:worse Context:symptoms improve on weekends/vacation; no problems/stress at work or home Modifying Factors:no new stressors in life; taking vitamins Associated Symptoms:no drug/alcohol withdrawal; no depression; no anxiety; no sleep disturbances; periods of not breathing (apnea) have not been observed; no recent change in weight;snoring Whenever I had my surgery last year, in my paper work it said I had A FIB My left leg is swollen I am tired all the time I had a renal doctor when I was a baby because, one of my kidneys wasn't well developed 39 y/o WF who was last seen by a different provider on 01/23/2017, in the interim, she stopped her Lisinopril which she was taking for Hypertension as she had lost weight. She was doing relatively well but was admitted in August, with abscesses of the right thigh and right axilla.During her admission for the abscess in 2023, AFIB was part of her diagnosis.She has noticed painless left leg welling for the last six weeks, she has been taking an OTC diuretic with some improvement.She snores and feels tired, there are no apneic episodes. Her menstrual cycles are normal and not heavy. She denies any chest pain or SOB. PMHX. 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 Status 06/23/19 17 1 CLOSED Fetus Data First Name Last Name Admitted to NICU Weight (g) Sex Living Outcome Pediatric Complications Fetus ID Race Codes Race Delivery Type 7.76 6 F Full Term [id number] Rah Calculation Initial Rah Date Initial Exam Date Initial Exam Provider Initial Ultrasound Date Last Menstrual Period Date Ultra Sound Weeks Gestation 0 Eighteen To Twenty Week Rah Update Ultra Sound Date Fundal Height At Umbil Quickening Date Ultra Sound Latest Weeks Gestation Final Rah Confirmed By Final Rah Confirmed Date Final Rah Date Ultra Sound Latest Days Gestation 0 0 Menstrual History Last Menstrual Date Menses Monthly On Bcp Conception Prior Menses Frequency Hcg Plus Date Menarche Onset Age Delivery Information Delivery Date Delivery Type Labor Anesthesia Weeks Gestation Incision Type Labor Labor Length Hrs Delivered By Post Complications Tubal Sterilization Discharge Date Comments 1 Regional-Sp inal 38 false 60 pt state s received had epidual, and spinal,cb ma Discharge Information Feeding Method Contraceptive Method Maternal HG B and HCT Levels
== END 2024-09-16 14:41 | disposition home or self-care (01) ==
PROVIDERS: PCP Physician Assistant; Visit Provider Internal Medicine Infectious Disease
DX: R94.31 Abnormal electrocardiogram [ECG] [EKG] (principal); R60.0 Localized edema; R00.0 Tachycardia, unspecified
CPT/HCPCS: 93005; 93970